=== PATIENT | female | born 2005 | race Hispanic/Latino ===

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

== ENCOUNTER 2023-02-16 13:11 | Observation (INO) | payer OTHER ==
[~2023-02-16] VITALS: Ht 157.5 cm; Wt 73.5 kg
[~2023-02-16 13:11] MED LIST changes: +SULF1TAB42 PO
[2023-02-16] MEDS ORDERED: CEPH500B PO (15:19)
[2023-02-16] MEDS ORDERED: LIDOCAINE HCL 1% 20 ML VIAL ONE (15:42)
[2023-02-16 15:46] VITALS: BP 128/61
[2023-02-16] MEDS ORDERED: CEFTRIAXONE 1G VIAL IM ONE (16:00)
== END 2023-02-16 17:24 | disposition home or self-care (01) ==
LOC: EDH 13:11 → LDH 15:26
PROVIDERS: ADMIT Obstetrics & Gynecology; ATTEND Obstetrics & Gynecology
DX: O99.712 Diseases of the skin and subcutaneous tissue complicating pregnancy, second trimester (principal); L02.31 Cutaneous abscess of buttock; O26.892 Other specified pregnancy related conditions, second trimester; R10.30 Lower abdominal pain, unspecified; Z3A.20 20 weeks gestation of pregnancy
CPT/HCPCS: 99284; 96372; G0378; J0696

== ENCOUNTER 2023-03-28 12:44 | Observation (INO) | payer MEDICAID ==
[~2023-03-28] VITALS: Ht 157.5 cm; Wt 75.7 kg
[~2023-03-28 12:44] MED LIST changes: +CEPH500B PO
[2023-03-28] MEDS ORDERED: LACTATED RINGERS 1000ML 1,000 ML IV PRN (13:30)
[2023-03-28 13:38] LABS: AMPHET/METH SCREEN,URINE NEGATIVE (NEGATIVE); BARBITURATE SCREEN, URINE NEGATIVE (NEGATIVE); BENZODIAZEPINES SCREEN,URINE NEGATIVE (NEGATIVE); CANNABINOID SCREEN,URINE NEGATIVE (NEGATIVE); COCAINE SCREEN,URINE NEGATIVE (NEGATIVE); OPIATE SCREEN,URINE NEGATIVE (NEGATIVE); PHENCYCLIDINE SCREEN,URINE NEGATIVE (NEGATIVE)
[2023-03-28 13:54] LABS: APPEARANCE,URINE CLOUDY (CLEAR); BILIRUBIN,URINE NEGATIVE (NEGATIVE); COLOR,URINE YELLOW (YELLOW); GLUCOSE, URINE (UA) NEGATIVE (NEGATIVE); KETONES,URINE NEGATIVE (NEGATIVE); LEUKOCYTE ESTERASE ,URINE 500 Leu/uL (NEGATIVE); NITRATE,URINE 2+ (NEGATIVE); PROTEIN,URINE 50 mg/dL (NEGATIVE); UROBILINOGEN,URINE 0.2 mg/dL (0.2-1.0)
[2023-03-28 14:07] LABS: BACTERIA,URINE MANY /HPF (None Seen); MUCUS,URINE RARE LPF (None Seen); SQUAMOUS EPITHELIAL CELL,UR MOD /HPF (0-2); TRANSITIONAL EPI CELLS,URINE RARE /HPF (None Seen); WBC,URINE TNTC /HPF (0-1); YEAST,URINE BUDDING MOD /HPF (None Seen)
[2023-03-28] MEDS ORDERED: CEFTRIAXONE 1G VIAL IVPB ONE (14:30)
[2023-03-28] MEDS ORDERED: CEFTRIAXONE 1G VIAL ONE (14:33)
== END 2023-03-28 15:20 | disposition home or self-care (01) ==
LOC: LDH 12:44
PROVIDERS: ADMIT Internal Medicine; ATTEND Internal Medicine
DX: O26.892 Other specified pregnancy related conditions, second trimester (principal); R10.9 Unspecified abdominal pain; R35.0 Frequency of micturition; O62.9 Abnormality of forces of labor, unspecified; O60.02 Preterm labor without delivery, second trimester; Z3A.27 27 weeks gestation of pregnancy; Z79.899 Other long term (current) drug therapy
CPT/HCPCS: 96361; 96365; 59025; 80305; 87077; 87088; 87186; 81001; G0378 ×2; G0379; J7120 ×2; J0696; 96360

== ENCOUNTER 2023-07-14 04:12 | Emergency (ER) | payer MEDICAID ==
[~2023-07-14] VITALS: Ht 157.5 cm; Wt 75.7 kg
[2023-07-14 04:26] LABS: BASOPHILS # (AUTO) 0.02 K/uL (0.00-0.20); BASOPHILS % (AUTO) 0.2 % (0.0-5.0); EOSINOPHILS % (AUTO) 1.1 % (0.0-8.0); HEMATOCRIT 33.9 % (36-48); IMMATURE GRANULOCYTE ABSOLUTE 0.04 K/uL (0-1); LYMPHOCYTES # (AUTO) 2.1 K/uL (1.0-4.8); LYMPHOCYTES % (AUTO) 22.7 % (21.0-51.0); MEAN CORPUSCULAR HEMOGLOBIN 23.9 pg (27.0-33.0); MEAN CORPUSCULAR HGB CONC 30.4 g/dL (32.0-36.0); MEAN CORPUSCULAR VOLUME 78.7 fL (80-100); MONOCYTES # (AUTO) 0.6 K/uL (0.1-1.0); MONOCYTES % (AUTO) 6.5 % (3.0-13.0); NEUTROPHILS # (AUTO) 6.2 K/uL (1.8-7.7); NEUTROPHILS % (AUTO) 69.1 % (40.0-77.0); PLATELET COUNT (AUTO) 323 K/uL (130-400); RED BLOOD CELL COUNT(AUTO) 4.31 MIL/uL (4.00-5.50); RED CELL DISTRIBUTION WIDTH 16.2 % (11.0-15.5)
[2023-07-14 04:29] VITALS: BP 136/84; PULSE 91; RESP 19; O2SAT 100
[2023-07-14 04:35] LABS: POTASSIUM 3.4 mmol/L (3.5-5.1)
[2023-07-14 04:43] LABS: INR 0.94 (0.85-1.15); PROTHROMBIN TIME 10.9 SEC (9.6-11.6)
[2023-07-14 04:44] LABS: ALBUMIN 3.4 g/dL (3.5-5.0); BILIRUBIN,TOTAL 0.2 mg/dL (0.2-1.0); MAGNESIUM 1.8 mg/dL (1.80-2.40); PARTIAL THROMBOPLASTIN TIME 31.9 SEC (26.3-35.5); TOTAL PROTEIN, SERUM 7.8 g/dL (6.0-8.3)
[2023-07-14 04:46] LABS: B-TYPE NATRIURETIC PEPTIDE 7 pg/mL (0-100)
[2023-07-14] MEDS ORDERED: IBUP-1493 PO (05:24)
[2023-07-14] MEDS ORDERED: MAG/ALUM/SIMETH 30 ML UDCUP PO ONE (05:30)
[2023-07-14] MEDS ORDERED: LIDOCAINE HCL 2% VISCOUS 15 ML UDCUP PO ONE (05:30)
[2023-07-14] MEDS ORDERED: CEFD300C3 PO (21:36)
== END 2023-07-14 05:34 | disposition home or self-care (01) ==
LOC: EDH 04:12
DX: R07.89 Other chest pain (principal); Z79.899 Other long term (current) drug therapy
CPT/HCPCS: 36415; 71045; 80053; 81001; 83690; 83735; 83880; 84484; 84703; 85025; 85378; 85610; 85730; 87077; 87088; 87186; 93005

== ENCOUNTER 2023-07-14 18:46 | Emergency (ER) | payer MEDICAID ==
[~2023-07-14 18:46] MED LIST changes: +IBUP-1493 PO
[2023-07-14 19:52] LABS: BASOPHILS # (AUTO) 0.02 K/uL (0.00-0.20); BASOPHILS % (AUTO) 0.2 % (0.0-5.0); EOSINOPHILS # (AUTO) 0.08 K/uL (0.00-0.70); EOSINOPHILS % (AUTO) 0.7 % (0.0-8.0); HEMATOCRIT 34.4 % (36-48); IMMATURE GRANULOCYTE ABSOLUTE 0.03 K/uL (0-1); LYMPHOCYTES # (AUTO) 1.2 K/uL (1.0-4.8); LYMPHOCYTES % (AUTO) 10.9 % (21.0-51.0); MEAN CORPUSCULAR HEMOGLOBIN 24.1 pg (27.0-33.0); MEAN CORPUSCULAR HGB CONC 30.8 g/dL (32.0-36.0); MEAN CORPUSCULAR VOLUME 78.4 fL (80-100); MONOCYTES # (AUTO) 0.6 K/uL (0.1-1.0); MONOCYTES % (AUTO) 5.2 % (3.0-13.0); NEUTROPHILS # (AUTO) 9.2 K/uL (1.8-7.7); NEUTROPHILS % (AUTO) 82.7 % (40.0-77.0); PLATELET COUNT (AUTO) 341 K/uL (130-400); RED BLOOD CELL COUNT(AUTO) 4.39 MIL/uL (4.00-5.50); RED CELL DISTRIBUTION WIDTH 16.5 % (11.0-15.5); WHITE BLOOD COUNT (AUTO) 11.1 K/uL (4.8-10.8)
[2023-07-14 20:00] LABS: CREATININE 0.9 mg/dL (0.5-1.5); POTASSIUM 3.4 mmol/L (3.5-5.1)
[2023-07-14 20:05] LABS: ALBUMIN 3.7 g/dL (3.5-5.0); BILIRUBIN,TOTAL 0.6 mg/dL (0.2-1.0); TOTAL PROTEIN, SERUM 8.2 g/dL (6.0-8.3)
[2023-07-14 21:11] LABS: APPEARANCE,URINE CLOUDY (CLEAR); BILIRUBIN,URINE NEGATIVE (NEGATIVE); COLOR,URINE YELLOW (YELLOW); GLUCOSE, URINE (UA) NEGATIVE (NEGATIVE); KETONES,URINE NEGATIVE (NEGATIVE); LEUKOCYTE ESTERASE ,URINE 500 Leu/uL (NEGATIVE); NITRATE,URINE 2+ (NEGATIVE); OCCULT BLOOD,URINE MODERATE (NEGATIVE); PROTEIN,URINE 50 mg/dL (NEGATIVE); UROBILINOGEN,URINE 0.2 mg/dL (0.2-1.0)
[2023-07-14 21:13] LABS: ADD UA MICROSCOPIC YES
[2023-07-14 21:15] LABS: BACTERIA,URINE MOD /HPF (None Seen); MUCUS,URINE FEW LPF (None Seen); SQUAMOUS EPITHELIAL CELL,UR MOD /HPF (0-2); WBC,URINE 51-100 /HPF (0-1)
[2023-07-14] MEDS ORDERED: POTASSIUM BICARB/CIT AC 25 MEQ TABLET.EFF ONE (21:27)
[2023-07-14] MEDS ORDERED: POTASSIUM BICARB/CIT AC 25 MEQ TABLET.EFF PO ONE (21:30)
[2023-07-14] MEDS ORDERED: CEFD300C3 PO (21:36)
[2023-07-14 21:59] VITALS: BP 127/64; PULSE 77; RESP 16; O2SAT 99
== END 2023-07-14 22:00 | disposition home or self-care (01) ==
LOC: EDH 18:46
DX: N39.0 Urinary tract infection, site not specified (principal); F41.9 Anxiety disorder, unspecified; Z79.1 Long term (current) use of non-steroidal anti-inflammatories (NSAID)
CPT/HCPCS: 36415; 71045; 80053; 81001; 83690; 84484; 85025; 87077; 87088; 87186; 93005

== ENCOUNTER → 2023-07-19 | Outpatient (CLI) | payer MEDICAID ==
[~2023-07-19] MED LIST changes: -AMOX1TAB16 PO; +CEFD300C3 PO; -CEPH500B PO; -IBUP-2070 PO; -SULF1TAB42 PO
== END | disposition home or self-care (01) ==
LOC: RAH 13:36
PROVIDERS: ATTEND Student in an Organized Health Care Education/Training Program
DX: R07.9 Chest pain, unspecified (principal); R00.2 Palpitations
CPT/HCPCS: 93306; 96374

== ENCOUNTER → 2023-07-26 | Outpatient (CLI) | payer MEDICAID ==
[~2023-07-26] MED LIST changes: +AMOX1TAB16 PO; +CEPH500B PO; +IBUP-2070 PO; +IOHEXOL 350 MG/ML 100ML INFUS..BTL IV ONE; +METOPROLOL TARTRATE 1 MG/ML 5ML VIAL IV ONE; +SULF1TAB42 PO
== END | disposition home or self-care (01) ==
LOC: RAH 08:12
PROVIDERS: ATTEND Student in an Organized Health Care Education/Training Program
DX: R07.9 Chest pain, unspecified (principal); R00.2 Palpitations
CPT/HCPCS: 75574; J3490; Q9967

== ENCOUNTER 2023-08-25 15:24 | Emergency (ER) | payer MEDICAID ==
[~2023-08-25] VITALS: Ht 154.9 cm; Wt 76.2 kg
[~2023-08-25 15:24] MED LIST changes: -AMOX1TAB16 PO; -CEPH500B PO; -IBUP-2070 PO; -IOHEXOL 350 MG/ML 100ML INFUS..BTL IV ONE; -METOPROLOL TARTRATE 1 MG/ML 5ML VIAL IV ONE; -SULF1TAB42 PO
[2023-08-25] MEDS ORDERED: ACET-2079 PO (16:17)
[2023-08-25] MEDS ORDERED: CEPH500B PO (16:17)
[2023-08-25] MEDS ORDERED: CEFTRIAXONE 1G VIAL IM ONE (16:30)
[2023-08-25] MEDS ORDERED: ACETAMINOPHEN WITH CODEINE 1 TAB TAB PO ONE (16:30)
[2023-08-25] MEDS ORDERED: ONDANSETRON ODT 4MG TAB SL ONE (17:00)
[2023-08-25] MEDS ORDERED: MORPHINE 4 MG SYG IM ONE (17:00)
[2023-08-25 18:01] VITALS: BP 129/60; PULSE 92; RESP 16; O2SAT 100
== END 2023-08-25 18:14 | disposition home or self-care (01) ==
LOC: EDH 15:24
DX: L02.31 Cutaneous abscess of buttock (principal); L03.317 Cellulitis of buttock; Z79.899 Other long term (current) drug therapy
CPT/HCPCS: 10080; 99284; 96372 ×2; J0696; J2270

== ENCOUNTER 2025-04-16 20:10 | Emergency (ER) | payer MEDICAID ==
[~2025-04-16] VITALS: Ht 154.9 cm; Wt 74.4 kg
[~2025-04-16 20:10] MED LIST changes: +ACET-2079 PO; +CEPH500B PO
[2025-04-16] MEDS ORDERED: IOHEXOL 350 MG/ML 100ML INFUS..BTL IV ONE (20:11)
--- NOTE | 2025-04-16 20:21 | ERN ---
General Chief Complaint: Abdominal Pain Stated Complaint: C/O ABD PAIN W/NAUSEA,DIZZINESS ONSET YESTERDAY Time Seen by MD: 20:12 Time Seen by Midlevel: 20:12 Source: patient History of Present Illness Initial Comments 19-year-old female who presents to the emergency department due to abdominal pain onset yesterday. Patient reports nausea, dizziness but denies any vomiting, diarrhea or further associated symptoms. Patient reports she is currently taking antibiotics and medication for UTI and herpes. LMP 04/13/2025. Denies significant past medical history. Surgical history of . Allergies: Coded Allergies: No Known Allergies (Unverified Allergy, Unknown, 02/02/22) Home Meds Active Scripts Acetaminophen with Codeine (Acetaminophen-Cod #3 Tablet) 300 Mg-30 Mg Tablet, 1 TAB PO Q4H PRN for PAIN, #20 TAB Prov:MADHAVI NG V ARBITRATOR 08/25/23 Cephalexin Monohydrate (Keflex) 500 Mg Cap, 500 MG PO TID for 7 Days, #21 CAP Prov:MADHAVI NG V ARBITRATOR 08/25/23 Cefdinir (Cefdinir) 300 Mg Capsule, 300 MG PO BID for 10 Days, #20 CAP Prov:CHAPARRO ORTA ARBITRATOR 07/14/23 Ibuprofen (Motrin/Advil) 800 Mg Tab, 800 MG PO TID, #30 TAB Prov:AGATA ROSALES MD 07/14/23 Past Medical History Past Medical History: Other Medical History Other: HX OF HERPES, UTI Past Surgical History: Family History Family History: Negative Social History Social History: Negative, Lives with family, Other Female( History) LMP: Apr 13, 2025 : 2 Para: 0 Aborts: 1 ROS Dictation Constitutional: Negative for fever,chills, and weight loss Eyes: Negative for injury, pain,redness, and discharge ENT: Negative for injury,pain or swelling Cardiovascular: Negative for chest pain, palpitations, and edema Respiratory: Negative for shortness of breath, cough, and wheezing, Abdomen/GI: Positive for abdominal pain, nausea Negative for vomiting, diarrhea, and constipation Back: Negative for injury and pain : Negative for painful urination, bleeding or discharge MS/Extremity: Negative for injury and deformity Skin: Negative for rash, and discoloration Neuro: Negative for headache, weakness, numbness, tingling, and seizure Psych: Negative for suicide ideation, homicidal ideation, and hallucinations Physical Exam Physical Exam Dictation General: awake, alert, no acute distress Head/Face: Normocephalic, atraumatic Eyes: PERRL, EOMI, normal conjunctiva ENT: oral cavity clear, oral mucosa moist Neck: Supple, normal range of motion Cardiovascular: RRR, normal S1/S2 Respiratory: CTAB, no respiratory distress, no rales or wheezes Abdomen: Soft, mild generalized abdominal tenderness, non-distended, no guarding or rebound. Skin: Warm, dry, normal turgor, no rash MS/Extremity: Pulses equal, no cyanosis, neurovascular intact, FROM Neuro: COAx4, GCS 15, strength 5/5, CN 2-12 intact, normal cerebellar exam, normal gait Psych: Normal behavior, mood, and affect normal Results Laboratory and Microbiology Lab and Micro Result Laboratory Tests Test 04/16/25 20:17 04/16/25 20:31 Urine Color YELLOW (YELLOW) Urine Appearance CLOUDY (CLEAR) H Urine pH 6.0 (5.0-8.0) Urine Specific [place] 1.016 (1.001-1.031) Urine Protein 20 mg/dL (NEGATIVE) H Urine Glucose (UA) NEGATIVE mg/dL (NEGATIVE) Urine Ketones NEGATIVE mg/dL (NEGATIVE) Urine Occult Blood LARGE (NEGATIVE) H Urine Nitrate NEGATIVE (NEGATIVE) Urine Bilirubin NEGATIVE mg/dL (NEGATIVE) Urine Urobilinogen 0.2 mg/dL (0.2-1.0) Urine Leukocyte Esterase 500 Antonio/uL (NEGATIVE) H Urine RBC 51-100 /HPF (0-1) H Urine WBC TNTC /HPF (0-1) H Urine Squamous Epithelial Cells MANY /HPF (0-2) Urine Transitional Epithelial Cells RARE /HPF (None Seen) Urine Bacteria RARE /HPF (None Seen) Urine HCG, Qualitative NEGATIVE (NEGATIVE) White Blood Count 19.3 K/uL (4.8-10.8) H Red Blood Count 4.73 MIL/uL (4.00-5.50) Hemoglobin 12.3 g/dL (12.0-16.0) Hematocrit 38.6 % (36-48) Mean Corpuscular Volume 81.6 fL (80-100) Mean Corpuscular Hemoglobin 26.0 pg (27.0-33.0) L Mean Corpuscular Hemoglobin Concent 31.9 g/dL (32.0-36.0) L Red Cell Distribution Width 14.6 % (11.0-15.5) Platelet Count 282 K/uL (130-400) Mean Platelet Volume 10.2 fL (7.5-10.5) Immature Granulocyte % (Auto) 0.5 % (0-1) Neutrophils (%) (Auto) 85.8 % (40.0-77.0) H Lymphocytes (%) (Auto) 9.4 % (21.0-51.0) L Monocytes (%) (Auto) 4.0 % (3.0-13.0) Eosinophils (%) (Auto) 0.1 % (0.0-8.0) Basophils (%) (Auto) 0.2 % (0.0-5.0) Neutrophils # (Auto) 16.5 K/uL (1.8-7.7) H Lymphocytes # (Auto) 1.8 K/uL (1.0-4.8) Monocytes # (Auto) 0.8 K/uL (0.1-1.0) Eosinophils # (Auto) 0.02 K/uL (0.00-0.70) Basophils # (Auto) 0.04 K/uL (0.00-0.20) Absolute Immature Granulocyte (auto 0.09 K/uL (0-1) Nucleated Red Blood Cells 0.0 % (0.0-0.19) White Cell Morphology Comment See comments Sodium Level 136 mmol/L (136-145) Potassium Level 3.4 mmol/L (3.5-5.1) L Chloride Level 98 mmol/L (101-111) L Carbon Dioxide Level 30 mmol/L (21-32) Blood Urea Nitrogen 12 mg/dL (7-18) Creatinine 0.9 mg/dL (0.5-1.0) Glomerular Filtration Rate Calc 93 mL/min (>90) Random Glucose 103 mg/dL (70-105) Total Calcium 9.0 mg/dL (8.5-10.1) Total Bilirubin 0.6 mg/dL (0.2-1.0) Direct Bilirubin 0.1 mg/dL (0.0-0.3) Aspartate Amino Transf (AST/SGOT) 13 U/L (10-37) Alanine Aminotransferase (ALT/SGPT) 22 U/L (12-78) Alkaline Phosphatase 72 U/L (50-136) Total Protein 8.8 g/dL (6.0-8.3) H Albumin 3.7 g/dL (3.5-5.0) Lipase 20 U/L (16-77) Labs Reviewed?: Yes EKG/XRAY/US/CT/MRI CT Scan Comment REASON: generalized abdominal pain ORDERING PHYSICIAN: PATTI CHERRY PROCEDURE: ABD PEL W - CT ABDOMEN/PELVIS W/CONTRAST EXAM: CT Abdomen and Pelvis with IV contrast CLINICAL HISTORY: Pain. TECHNIQUE: Thin collimated axial CT images of the abdomen and pelvis were obtained, with sagittal and coronal reformatted images also submitted. A CT scan is done according to ALARA (As Low As Reasonably Achievable). Intravenous contrast was administered. COMPARISON: CT scan of the abdomen and pelvis dated 02/02/2022. FINDINGS: Unremarkable visualized lung parenchyma. There is no focal abnormality appreciated within the liver, pancreas, spleen, adrenals, or kidneys. The gallbladder is partially distended with a few small 4-5 mm calculi. There is no obvious bowel wall thickening. Bowel loops are normal in caliber without evidence of obstruction or ileus. The appendix is unremarkable. There is no abnormality within the urinary bladder. Unremarkable reproductive organs. No lymphadenopathy. No free fluid. No pneumoperitoneum. No gross abnormality in the abdominal vessels. Bilateral pelvic varices with dilated ovarian veins and mild mesenteric haziness. There are a few bilateral inguinal lymph nodes, the largest measuring 1.5 cm in the left inguinal region. There is no acute osseous abnormality. IMPRESSIONS: Cholelithiasis without cholecystitis. This is a new finding. Stable bilateral pelvic varices with dilated ovarian veins and mesenteric haziness suggestive of pelvic congestion. Stable inguinal lymphadenopathy. Resolved inflammatory changes and abscesses in the intergluteal region. /[place] DICTATED BY: TOMMY MAGAÑA Jr., MD DATE: 04/17/2599 ELECTRONICALLY SIGNED BY: TOMMY MAGAÑA Jr., MD DATE: 04/17/2599 [facility] Differential diagnosis: Pyelonephritis, infected stone as the nidus, sepsis, cystitis, perinephric abscess Rationale: Tests considered and ordered secondary to shared decision making include: Previous outside records reviewed: Old ER visits. Risk of complication and/or morbidity or mortality of patient management: None Medications-Per medication reconciliation Need for hospitalization: Patient does not meet criteria for hospitalization. Need for emergency major/minor surgery: No There are no social concerns with this patient. Prescription drug management Prescriptions will include symptomatic care Patient's prior external medical records from other ER visits were reviewed by me as indicated. Prior testing and results from previous visits were reviewed. Prior tests were taken into account with medical decision making and resource utilization, independent historian/historians were used to obtain complete medical history. I independently interpreted the test that were performed, results were reviewed by me and considered findings on radiology if ordered. Medical management and examination interpretation discussions were had by me with other qualified healthcare professionals as indicated for the patient's care. ED Course Orders Procedure Category Date Status Time Cbc With Differential LAB 04/16/25 Complete 20:16 Basic Metabolic Panel LAB 04/16/25 Complete 20:16 Urinalysis LAB 04/16/25 Complete W/Microscopic 20:16 Lipase LAB 04/16/25 Complete 20:16 Hepatic Function Panel LAB 04/16/25 Complete 20:16 ,Urine Test LAB 04/16/25 Complete 20:16 Ondansetron Odt 4mg PHA 04/16/25 Complete Tab (Zofran 4mg Odt) 20:30 Culture Urine KAREN 04/16/25 In Process 20:48 Ct Abdomen/Pelvis CT 04/16/25 Resulted W/Contrast 21:25 Morphine 2mg Syg PHA 04/16/25 Complete (Morphine 2mg Syg) 21:30 Ceftriaxone 1g Vial PHA 04/16/25 Complete (Rocephine 1g Inj) 23:30 Current Medications Medications (Trade) Dose Ordered Sig/Saqib Route PRN Reason Start Time Stop Time Status Last Admin Dose Admin Ceftriaxone Sodium (ROCEphine 1G INJ) 1 gm ONCE ONCE IVPB 04/16/25 23:30 04/16/25 23:31 DC 04/16/25 23:16 Morphine Sulfate (morPHINE 2MG SYG) 2 mg ONCE ONCE IM 04/16/25 21:30 04/16/25 21:31 DC 04/16/25 21:49 Ondansetron HCl (zoFRAN 4MG ODT) 4 mg ONCE ONCE SL 04/16/25 20:30 04/16/25 20:31 DC 04/16/25 21:13 Vital Signs Date Time Temp Pulse Resp B/P (MAP) Pulse Ox O2 Delivery O2 Flow Rate FiO2 04/16/25 21:19 98.2 96 16 112/60 98 Room Air* 0 21 04/16/25 20:12 98.2 104 20 113/62 98 Room Air 10:15 p.m. patient was signed out to me by the PA. This is a 19-year-old female who has been worked up for abdominal pain nausea and dizziness she has been on antibiotics for UTI as well as herpes simplex. [place] [id number] scan of the abdomen and pelvis was done which was pending at the time of sign-out. 12:[address] scan of the abdomen and pelvis finally has been done and resulted which shows improved inflammatory changes, no pyelonephritis or abscess. Sugg estion of pelvic congestion of unclear significance I updated the patient on all the available labs and the CT scan findings and we will discharge her to home on Macrobid I updated the patient and family member on the CT scan findings and plan to pursue outpatient antibiotic therapy. Patient continues to have significant pelvic pain which maybe related to pelvic congestion syndrome. Temporarily a trial of Toradol as outpatient but if symptoms continue she needs to see her OBGYN physician for any additional hormonal treatments or interventions. DX & DISP Disposition: Discharge Departure Impression: Primary Impression: UTI (urinary tract infection) Additional Impressions: Pelvic pain, Female pelvic congestion syndrome Condition: Stable Scripts Nitrofurantoin Monohyd/M-Cryst (Macrobid 100 mg Capsule) 100 Mg Capsule 1 CAP PO BID for 7 Days, #14 CAP 0 Refills Prov: FILEMON ARCHULETA MD 04/17/25 Ketorolac Tromethamine (Toradol) 10 Mg Tab 10 MG PO QID for pain for 5 Days, #20 TAB 0 Refills Prov: FILEMON ARCHULETA MD 04/17/25 Additional Instructions: Patient and the caregiver have been informed of all the diagnostic tests and the imaging conducted during the today's visit to the emergency room and has verbalized understanding of the results I have personally reviewed and interpreted all diagnostic exams performed here in the ER today as well as the vital signs documented by the nursing staff. The patient is now being discharged to home and should follow up with the primary care physician or the specialist as directed by the ER staff. Follow-up with primary care provider in 1 to 2 days. Take medications as directed here in the emergency room. Okay to continue home medications unless otherwise discussed during your visit in the emergency room today. Return to your nearest emergency room if symptoms worsen or if there is no improvement. Call 911 if you need immediate assistance. Take Tylenol or Motrin ove [id number] as needed and if no contraindications are present. Increase oral hydration. A wound culture or urine culture was ordered here in the emergency room department please follow-up with primary care provider and advise them to get repeat ports from our facility. If you had any Dg wrap/splints that were applied here, please do not remove them until you see your primary care or specialty. Patient continues to have significant pelvic pain which maybe related to pelvic congestion syndrome. Temporarily a trial of Toradol as outpatient but if symptoms continue she needs to see her OBGYN physician for any additional hormonal treatments or interventions. Referrals: SANDY GUAMAN (PCP) PATTI CHERRY Apr 16, 2025 20:21 FILEMON ARCHULETA MD Apr 17, 2025 00:25
[2025-04-16 20:40] LABS: IMMATURE GRANULOCYTE ABSOLUTE 0.09 K/uL (0-1); NUCLEATED RED BLOOD CELLS 0.0 % (0.0-0.19); PLATELET COUNT (AUTO) 282 K/uL (130-400); RED BLOOD CELL COUNT(AUTO) 4.73 MIL/uL (4.00-5.50); RED CELL DISTRIBUTION WIDTH 14.6 % (11.0-15.5); WHITE BLOOD COUNT (AUTO) 19.3 K/uL (4.8-10.8)
[2025-04-16 20:47] LABS: APPEARANCE,URINE CLOUDY (CLEAR); GLUCOSE, URINE (UA) NEGATIVE (NEGATIVE); LEUKOCYTE ESTERASE ,URINE 500 Leu/uL (NEGATIVE); NITRATE,URINE NEGATIVE (NEGATIVE); OCCULT BLOOD,URINE LARGE (NEGATIVE)
[2025-04-16 20:49] LABS: HCG,QUALITATIVE URINE NEGATIVE (NEGATIVE)
[2025-04-16 20:51] LABS: CREATININE 0.9 mg/dL (0.5-1.0); GLOMERULAR FILTR. RATE CALC 93.0 mL/min (>90); GLUCOSE,RANDOM 103.0 mg/dL (70-105); SODIUM SERUM 136.0 mmol/L (136-145); UREA NITROGEN, BLOOD 12.0 mg/dL (7-18)
[2025-04-16 20:54] LABS: SQUAMOUS EPITHELIAL CELL,UR MANY /HPF (0-2)
[2025-04-16 20:55] LABS: ASPARTATE AMINOTRANSFERASE 13.0 U/L (10-37); TOTAL PROTEIN, SERUM 8.8 g/dL (6.0-8.3)
--- NOTE | 2025-04-16 23:28 | NUR ---
TRANSFERED CARE TO CN AT THIS TIME
--- NOTE | 2025-04-17 00:01 | HMCIMG ---
EXAM: CT Abdomen and Pelvis with IV contrast CLINICAL HISTORY: Pain. TECHNIQUE: Thin collimated axial CT images of the abdomen and pelvis were obtained, with sagittal and coronal reformatted images also submitted. A CT scan is done according to ALARA (As Low As Reasonably Achievable). Intravenous contrast was administered. COMPARISON: CT scan of the abdomen and pelvis dated 02/02/2022. FINDINGS: Unremarkable visualized lung parenchyma. There is no focal abnormality appreciated within the liver, pancreas, spleen, adrenals, or kidneys. The gallbladder is partially distended with a few small 4-5 mm calculi. There is no obvious bowel wall thickening. Bowel loops are normal in caliber without evidence of obstruction or ileus. The appendix is unremarkable. There is no abnormality within the urinary bladder. Unremarkable reproductive organs. No lymphadenopathy. No free fluid. No pneumoperitoneum. No gross abnormality in the abdominal vessels. Bilateral pelvic varices with dilated ovarian veins and mild mesenteric haziness. There are a few bilateral inguinal lymph nodes, the largest measuring 1.5 cm in the left inguinal region. There is no acute osseous abnormality. IMPRESSIONS: Cholelithiasis without cholecystitis. This is a new finding. Stable bilateral pelvic varices with dilated ovarian veins and mesenteric haziness suggestive of pelvic congestion. Stable inguinal lymphadenopathy. Resolved inflammatory changes and abscesses in the intergluteal region. /[place]
[2025-04-17] MEDS ORDERED: NITR100C4 PO (00:23)
[2025-04-17] MEDS ORDERED: KETO10 PO (00:23)
[2025-04-17 00:29] VITALS: BP 129/81; PULSE 85; RESP 17; TEMP 98.1; O2SAT 98
== END 2025-04-17 00:33 | disposition home or self-care (01) ==
LOC: EDH 20:10
DX: N39.0 Urinary tract infection, site not specified (principal); R10.2 Pelvic and perineal pain; N94.89 Other specified conditions associated with female genital organs and menstrual cycle; Z79.1 Long term (current) use of non-steroidal anti-inflammatories (NSAID)
CPT/HCPCS: 99285; 74177; 96365; 80076; 80048; 83690; 85025; 87086 ×3; 87186 ×2; 81001; 81025; 36415; 96372; 96375; J2270; J0696; Q9967; J1885